=== PATIENT | female | born 1965 | race Caucasian/White ===

== ENCOUNTER → 2016-11-21 | Outpatient (CLI) | payer OTHER ==
--- NOTE | 2016-11-21 18:19 | DX ---
Cervical spine, 4 views including flexion and extension History: Midline cervical tenderness. M54.2. Technique: AP, lateral neutral, lateral flexion and lateral extension views of the cervical spine. Findings: In neutral position, there is 15 degrees of cervical kyphosis centered at the C4-C5 level. Moderate degenerative disk disease at C4-C5, C5-C6 and C6-C7 with moderate disk space narrowing and v entral osteophytes. Minimal 2 mm retrolisthesis at C4-C5 and C5-C6 without evidence of instability on the flexion and extension views. There is limited range of motion on flexion and extension. No destr uctive osseous lesions. Impression: 1. Moderate degenerative disk disease in the cervical spine at C4-C5, C5-C6 and C6-C7 with kyphosis, limited range of motion, without definite instability. 2. MRI of the cervical spine may be of further benefit to evaluate for central canal and neural manish inal stenosis if clinically indicated.
== END ==
LOC: BMCIMAGING 11:20
PROVIDERS: ATTEND Family Medicine
DX: M50.321 Other cervical disc degeneration at C4-C5 level (principal); M50.322 Other cervical disc degeneration at C5-C6 level; M50.323 Other cervical disc degeneration at C6-C7 level; M99.71 Connective tissue and disc stenosis of intervertebral foramina of cervical region; M40.202 Unspecified kyphosis, cervical region

== ENCOUNTER → 2016-11-30 | Outpatient (CLI) | payer OTHER | LOC: FIMAGING 07:43 | PROVIDERS: ATTEND Family Medicine | DX: M50.20 Other cervical disc displacement, unspecified cervical region (principal); M99.71 Connective tissue and disc stenosis of intervertebral foramina of cervical region; M89.38 Hypertrophy of bone, other site ==

== ENCOUNTER → 2018-07-04 | Outpatient (CLI) | payer OTHER | LOC: FIMAGING 10:52 | PROVIDERS: ATTEND Family Medicine | DX: E04.1 Nontoxic single thyroid nodule (principal) ==

== ENCOUNTER → 2018-08-14 | Outpatient (CLI) | payer OTHER | LOC: FIMAGING 10:56 | PROVIDERS: ATTEND Family Medicine | DX: Z12.31 Encounter for screening mammogram for malignant neoplasm of breast (principal) ==